=== PATIENT | male | born 1980 | race Caucasian/White ===

== ENCOUNTER 2016-11-04 09:28 | Day surgery (SDC) | payer BC ==
[~2016-11-04] VITALS: Ht 180.3 cm; Wt 97.1 kg
[~2016-11-04 09:28] MED LIST: BACTRIM,SEPT1 TABLET PO; BENICAR5 MG; COLACE100 MG PO; CYCLOBENZAPRINE5 MG PO; DEXILANT60 MG; FLEXERIL10 MG PO; FLEXERIL5 MG PO; HYDROCODON-ACE1 EAC7 PO; KEFLEX500 MG PO; LEVOTHYROXINE25 MCG; LISINOPRIL10 MG PO; LYRICA100 MG PO; MEDROL DOSEPAK4 MG PO; MOBIC7.5 MG PO; MOTRIN800 MG PO; NORCO 7.5/321 TABLET PO; PERCOCET 5/31 TABLET PO; PREDNISONE10 MG PO; PREDNISONE20 MG PO; PREDNISONE50 MG PO; PRINIVIL10 MG PO; RANITIDINE HCL150 MG PO; RASH RELIEF ANT56 GM TP; ULTRAM50 MG PO; VALIUM2 MG PO; VALIUM5 MG PO; ZANTAC150 MG PO; ZESTRIL20 MG PO; ZIPSOR25 MG
== END 2016-11-04 10:50 | disposition home or self-care (01) ==
LOC: PAIN 09:28
DX: M54.16 Radiculopathy, lumbar region (principal); I10 Essential (primary) hypertension; K21.9 Gastro-esophageal reflux disease without esophagitis; Z87.891 Personal history of nicotine dependence
CPT/HCPCS: J1100; J2250; J3010

== ENCOUNTER 2016-11-27 09:48 | Day surgery (SDC) | payer BC ==
[~2016-11-27] VITALS: Ht 180.3 cm; Wt 97.1 kg
== END 2016-11-27 11:55 | disposition home or self-care (01) ==
LOC: PAIN 09:48 → SDC 10:15 → PAIN 11:55
DX: M47.26 Other spondylosis with radiculopathy, lumbar region (principal); M51.16 Intervertebral disc disorders with radiculopathy, lumbar region; M48.06 Spinal stenosis, lumbar region; I10 Essential (primary) hypertension; K21.9 Gastro-esophageal reflux disease without esophagitis; F41.9 Anxiety disorder, unspecified; Z79.891 Long term (current) use of opiate analgesic; Z87.891 Personal history of nicotine dependence
CPT/HCPCS: J1100; J2250; J3010

== ENCOUNTER 2017-04-07 08:32 | Day surgery (SDC) | payer BC ==
[~2017-04-07] VITALS: Ht 180.3 cm; Wt 99.8 kg
[~2017-04-07 08:32] MED LIST changes: +CYMBALTA30 MG PO; -LYRICA100 MG PO; +LYRICA150 MG PO
== END 2017-04-07 09:30 | disposition home or self-care (01) ==
LOC: PAIN 08:32 → SDC 09:15 → PAIN 09:15
PROC: BR161ZZ Fluoroscopy of Lumbar Facet Joint(s) using Low Osmolar Contrast (ICD-10-PCS; principal; 2017-04-07)
PROC: 3E0T3BZ Introduction of Anesthetic Agent into Peripheral Nerves and Plexi, Percutaneous Approach (ICD-10-PCS; principal; 2017-04-07)
PROC: 3E0T33Z Introduction of Anti-inflammatory into Peripheral Nerves and Plexi, Percutaneous Approach (ICD-10-PCS; principal; 2017-04-07)
DX: M47.26 Other spondylosis with radiculopathy, lumbar region (principal); M51.16 Intervertebral disc disorders with radiculopathy, lumbar region; I10 Essential (primary) hypertension; F17.200 Nicotine dependence, unspecified, uncomplicated; Z79.891 Long term (current) use of opiate analgesic
CPT/HCPCS: J1030; J2250; J3010; S0020

== ENCOUNTER 2017-04-13 08:30 | Day surgery (SDC) | payer BC ==
[~2017-04-13] VITALS: Ht 180.3 cm; Wt 99.8 kg
== END 2017-04-13 10:10 | disposition home or self-care (01) ==
LOC: PAIN 08:30 → SDC 09:00 → PAIN 09:00
DX: M47.26 Other spondylosis with radiculopathy, lumbar region (principal); M51.16 Intervertebral disc disorders with radiculopathy, lumbar region; M48.061 Spinal stenosis, lumbar region without neurogenic claudication; F41.9 Anxiety disorder, unspecified; I10 Essential (primary) hypertension; K21.9 Gastro-esophageal reflux disease without esophagitis; Z87.891 Personal history of nicotine dependence; Z79.891 Long term (current) use of opiate analgesic
CPT/HCPCS: J1030; J2250; J3010; S0020

== ENCOUNTER 2017-05-04 10:40 | Emergency (ER) | payer BC ==
[~2017-05-04] VITALS: Ht 180.3 cm; Wt 106.6 kg
[2017-05-04] MEDS ORDERED: NAPROXEN500 MG PO (12:50)
[2017-05-04 13:03] VITALS: BP 151/91
== END 2017-05-04 13:03 | disposition home or self-care (01) ==
LOC: EME 10:40
DX: M79.602 Pain in left arm (principal); M54.9 Dorsalgia, unspecified; G89.29 Other chronic pain; M54.12 Radiculopathy, cervical region; K21.9 Gastro-esophageal reflux disease without esophagitis; I10 Essential (primary) hypertension; E78.5 Hyperlipidemia, unspecified; F41.9 Anxiety disorder, unspecified; Z87.891 Personal history of nicotine dependence
CPT/HCPCS: 72040; 93005; 99281; 99283; J1885; J8540

== ENCOUNTER 2017-10-28 13:10 | Emergency (ER) | payer BC ==
[~2017-10-28] VITALS: Ht 177.8 cm; Wt 107.2 kg
[~2017-10-28 13:10] MED LIST changes: +NAPROXEN500 MG PO
[2017-10-28] MEDS ORDERED: FLEXERIL10 MG PO (14:59)
[2017-10-28] MEDS ORDERED: MEDROL DOSEPAK4 MG PO (14:59)
[2017-10-28] MEDS ORDERED: PERCOCET 5/31 TABLET PO (14:59)
[2017-10-28 15:06] VITALS: BP 164/110
== END 2017-10-28 15:06 | disposition home or self-care (01) ==
LOC: EME 13:10
DX: M54.42 Lumbago with sciatica, left side (principal); G89.29 Other chronic pain; F41.9 Anxiety disorder, unspecified; I10 Essential (primary) hypertension; Z87.891 Personal history of nicotine dependence
CPT/HCPCS: 99281; 99283; J7512